=== PATIENT | female | born 1950 | race Caucasian/White ===

== ENCOUNTER 2025-01-26 14:00 | Inpatient (IN) ==
--- NOTE | 2025-01-26 15:28 | Emergency Department Note ---
Impression & Plan Wound of gluteal cleft, Dyspnea, CHF (congestive heart failure), Ambulatory dysfunction ED Provider Note HISTORY OF PRESENT ILLNESS: Patient is a 74-year-old female presenting with bedsores. Patient reports that her daughter and dog licenser had thought that her "sores on my butt looked gangrenous and were concerned for sepsis" and that is why she is in the emergency department. Patient denies any significant pain to this area. She reports she is wheelchair and bedbound. She does not ambulate at all. She states that she was septic previously in October and had some shortness of breath, and she started having some shortness of breath this last week. However, patient has no complaints of shortness of breath in ER. Denies any fevers or chills at home. Denies any abdominal pain, nausea or vomiting. She states that she is frequently incontinent and wears a briefs regularly. ROS: as above PHYSICAL EXAM: Constitutional: Patient appears in no acute distress. Morbidly obese HENT: Head: Normocephalic and atraumatic. Eyes: EOMI, PERRL Mouth/Throat: Mucous membranes moist. Neck: Trachea midline. Neck supple. Cardiovascular: RRR, No murmurs, rubs or gallops. Intact distal pulses. Pulmonary/Chest: No respiratory distress. Breath sounds clear and equal bilaterally. No wheezes or rales. Abdominal: Abdomen soft, no tenderness, rebound or guarding. Musculoskeletal: No tenderness or deformity noted. Nonpitting edema of the lower extremities. Rectal: Chaperoned by nursing staff. Patient has skin excoriations with overlying scabbing to the bilateral gluteal cleft region. No drainage expressed from the area no palpable fluctuance. No open sores. Skin: Warm and dry. No rash, erythema, pallor or cyanosis Psychiatric: Appropriate mood and affect for situation. Neurological: Alert and keenly responsive. CN II-XII grossly intact MDM: - Vitals signs showed hypertension - History obtained via patient. History as above. - Chronic conditions affecting care: Lymphedema; morbid obesity - Differential diagnoses include, but are not limited to: sacral ulcer; gluteal irritation; UTI; - Order placed for continuous cardiac monitoring. At this time, monitor showed rate of 76 bpm with normal sinus rhythm, per my interpretation. - External medical records reviewed. Discharge summary dated 11/05/2024 was reviewed. Patient was admitted that time due to ambulatory dysfunction and was placed in a SNF previously. - Laboratory workup interpreted by myself showed normal WBC; stable electrolytes; normal PT/INR; negative procalcitonin - Discussed results with the patient. Attempted to work on getting her discharge, and her daughter called and was very upset. She reports the patient has been very short of breath. However, the patient does not express any significant shortness of breath on repeat questioning. Daughter and patient are also asking about her having a Menjivar catheter placed. However, I did discuss that this would be something that puts her at high risk for infections. Recommended use of barrier creams and she was given some barrier cream in the emergency department to utilize at home. Troponin and chest x-ray were ordered for the reported shortness of breath that the patient is not complaining of at the behest of the daughter. - CXR image showed some congestive changes per radiology. - On discussion with patient, she reports that she does not feel comfortable going home and her family does not feel comfortable taking her home given that they are unable to care for her. Will discuss case with hospitalist service. - Discussion was had with window caser about patient's case and need for admission. Patient has previously been admitted for inpatient rehab/SNF placement. - Hospitalist consulted for admission - Patient admitted to [facility] hospitalist service for further evaluation and management. ASSESSMENT AND PLAN: Diagnosis: Wound of gluteal cleft; dyspnea; CHF; ambulatory dysfunction Plan: Admit Past Med/Surg History Problem List (Updated 01/26/25 @ 17:56 by Nathalia Anne MD) Ambulatory dysfunction (Acute) CHF (congestive heart failure) (Acute) Dyspnea (Acute) Wound of gluteal cleft (Acute) Morbid obesity with BMI of 50.0-59.9, adult Lymphedema Wound of skin Ambulatory dysfunction Medical History Anemia Stable angina Hypertension Surgical History History of total hip arthroplasty Family History Other Diabetes mellitus, type 2 Social History Smoking Status: Never smoker Second Hand Exposure: No; Do You Dip or Chew Tobacco: No; Hx Alcohol Use: No Hx Substance Use: No Preferred Language: Slovenian Communication Ability: Effective Portal Administrator Required: No Beliefs That Will Affect Care: None Current Living Situation: Spouse Feels Safe at Home: Yes Assistive Devices: Mechanical Lift, Walker and Wheelchair Allergies Allergies Allergy/AdvReac Type Severity Reaction Status Date / Time cat dander Allergy Congested Verified 09/24/24 11:03 Home Meds Home Medications Medication Instructions Recorded Confirmed Vitamin D3 25 mcg PO DAILY 09/24/24 11/03/24 ascorbic acid (vitamin C) 500 mg 500 mg PO DAILY 09/24/24 11/03/24 capsule atorvastatin 10 mg tablet 10 mg PO HS 09/24/24 11/03/24 carvedilol 3.125 mg tablet 3.125 mg PO BID 09/24/24 11/03/24 ferrous sulfate 325 mg PO DAILY 09/24/24 11/03/24 fluticasone furoate 50 See Rx Instructions .Route .COMPLEX 09/24/24 11/03/24 mcg/actuation blister powder for inhalation furosemide 40 mg tablet 40 mg PO DAILY 09/24/24 11/03/24 gabapentin 300 cap PO HS 09/24/24 09/24/24 mirabegron 25 mg tablet,extended 25 mg PO DAILY 09/24/24 11/03/24 release 24 hr ondansetron HCl 4 mg tablet 4 mg PO Q6H PRN Nausea And Vomiting 09/24/24 09/24/24 pantoprazole 40 mg tablet,delayed 40 mg PO DAILY 09/24/24 11/03/24 release sennosides 8.6 mg tablet (senna) 17.2 mg PO BID 09/24/24 09/24/24 zinc sulfate 220 mg capsule 220 mg PO DAILY 09/24/24 11/03/24 amoxicillin 875 mg-potassium 1 tab PO BID 11/03/24 11/03/24 clavulanate 125 mg tablet ranolazine 1,000 mg 1,000 mg PO BID 11/03/24 11/03/24 tablet,extended release,12 hr ranolazine 1,000 mg mg PO 11/03/24 tablet,extended release,12 hr Results & Data (ED) Vital Signs Vital Signs - 24 hr 01/26/25 14:13 01/26/25 15:12 01/26/25 16:30 Temperature 36.4 C L Temperature Source Oral Pulse Rate 73 75 Pulse Rate from SpO2 Sensor 76 Respiratory Rate 19 27 H Respiratory Effort / Characteristics Non-Labored Spontaneous Respiratory Depth Normal Blood Pressure 171/63 H Blood Pressure Mean 99 Blood Pressure Position Semi-fowlers Pulse Oximetry 98 97 99 Oxygen Delivery Method Room Air Room Air Room Air Sepsis Recent Fever Within 48 Hours No Sepsis New/Unexplained Change in Mental Status N/A Sepsis Action Taken by Nursing No Action Required 01/26/25 17:00 01/26/25 17:33 01/26/25 17:40 Temperature Temperature Source Pulse Rate 76 76 76 Pulse Rate from SpO2 Sensor 76 76 Respiratory Rate 18 23 Respiratory Effort / Characteristics Respiratory Depth Blood Pressure Blood Pressure Mean Blood Pressure Position Pulse Oximetry 99 96 Oxygen Delivery Method Room Air Room Air Sepsis Recent Fever Within 48 Hours Sepsis New/Unexplained Change in Mental Status Sepsis Action Taken by Nursing Laboratory Data 01/26/25 15:30 01/26/25 15:30 Lab Results 01/26/25 Range/Units 15:30 WBC 7.81 (4.8-10.8) K/ul RBC 4.62 (4.20-5.40) M/uL Hgb 12.9 (12.0-16.0) g/dl Hct 41.1 (37.0-47.0) % MCV 89.0 (80.0-100.0) fL MCH 27.9 (25.0-34.0) pg MCHC 31.4 L (32.0-36.0) g/dL RDW Std Deviation 45.1 (36.4-46.3) fL RDW Coeff of Jamaal 13.9 (11.5-14.5) % Plt Count 238 (130-400) K/uL MPV 9.1 L (9.4-12.4) fL Immature Gran % (Auto) 0.5 % Neut % (Auto) 66.6 % Lymph % (Auto) 22.4 % Steele % (Auto) 8.2 % Eos % (Auto) 1.9 % Baso % (Auto) 0.4 % Neut # (Auto) 5.20 (1.40-6.50) K/uL Lymph # (Auto) 1.75 (1.20-3.40) K/uL Steele # (Auto) 0.64 H (0.11-0.59) K/uL Eos # (Auto) 0.15 (0.00-0.50) K/uL Baso # (Auto) 0.03 (0.00-0.20) K/uL Immature Gran # (Auto) 0.04 (0.01-0.20) K/uL PT 10.9 (9.0-12.0) Seconds INR 1.0 (0.9-1.1) Sodium 141 (136-145) mmol/L Potassium 4.0 (3.5-5.1) mmol/L Chloride 106 (98-107) mmol/L Carbon Dioxide 28 (21-32) mmol/L Anion Gap 7 (3-11) BUN 23 (6-23) mg/dl Creatinine 0.63 (0.6-1.2) mg/dl Est Cr Clr Drug Dosing Not Reportable eGFR 94.19 BUN/Creatinine Ratio 36.5 H (10-20) Glucose 91 (70-99(Fasting)) mg/dl Calcium 9.3 (8.6-10.3) mg/dl Total Bilirubin 0.5 (0.2-1.0) mg/dl AST 14 (13-39) U/L ALT 13 (7-52) U/L Alkaline Phosphatase 104 (34-104) U/L Total Protein 7.8 (6.0-8.3) gm/dl Albumin 3.5 (3.4-5.0) gm/dl Globulin 4.3 H (2.5-4.0) gm/dl Albumin/Globulin Ratio 0.8 L (0.9-2) Procalcitonin < 0.02 (0-0.5) ng/ml Imaging Data Radiologist's Impression: Chest X-Ray 01/26/25 16:55 EXAM: Portable AP chest radiograph TECHNIQUE: AP portable radiograph of the chest was obtained. INDICATION: Shortness of breath Comparison: Chest radiograph November 03, 2024 FINDINGS: LINES and TUBES: None. CARDIOVASCULAR: Cardiac silhouette is stably enlarged in size. Atherosclerosis of the thoracic aorta LUNGS/PLEURA: Mild pulmonary vascular congestion has increased from previous. Chronic interstitial lung changes. No focal consolidation identified. Small pleural fluids may be present. No discernible pneumothorax. OSSEOUS/OTHER: No displaced acute osseous process identified. IMPRESSION: Mild interval worsening of the congestive changes of the cardiovascular system. Electronically signed by Trenton Keys 01-26-2025 5:28 PM Discharge Plan Visit Data Chief Complaint: Wound Stated Complaint: BED SORES ED Provider: Nathalia Anne Discharge Problem: Wound of gluteal cleft, Dyspnea, CHF (congestive heart failure), Ambulatory dysfunction Condition: Fair Forms Stand Alone Forms: My [facility] [place] Prescriptions Prescriptions: No Action furosemide 40 mg Tablet 40 mg PO DAILY sennosides [senna] 8.6 mg Tablet 17.2 mg PO BID atorvastatin 10 mg Tablet 10 mg PO HS ondansetron HCl 4 mg Tablet 4 mg PO Q6H PRN (Reason: Nausea And Vomiting) carvedilol 3.125 mg Tablet 3.125 mg PO BID Rx Instructions: must administer with a meal/food pantoprazole 40 mg Tablet,Delayed Release (Dr/Ec) 40 mg PO DAILY zinc sulfate 220 mg Capsule 220 mg PO DAILY mirabegron 25 mg Tablet Extended Release 24 Hr 25 mg PO DAILY ascorbic acid (vitamin C) 500 mg Capsule 500 mg PO DAILY fluticasone furoate 50 mcg/actuation Blister With Device See Rx Instructions .ROUTE .COMPLEX Rx Instructions: as directed Vitamin D3 25 mcg PO DAILY ferrous sulfate 325 mg PO DAILY gabapentin 300 cap PO HS amoxicillin-pot clavulanate 875-125 mg tablet 1 tab PO BID ranolazine 1,000 mg tablet extended release 12 hr 1,000 mg PO BID ranolazine 1,000 mg tablet extended release 12 hr PO Referrals Referrals: Marya Puente PA-C [Primary Care Provider] -
[2025-01-26 16:04] LABS: Hematocrit (blood only) 41.1 % (37.0-47.0); Hemoglobin 12.9 g/dl (12.0-16.0); Mean Corpuscular Hemoglobin 27.9 pg (25.0-34.0); Mean Corpuscular Volume 89.0 fL (80.0-100.0); Platelet Count 238 K/uL (130-400); RDW Standard Deviation 45.1 fL (36.4-46.3); Red Blood Count 4.62 M/uL (4.20-5.40); White Blood Count 7.81 K/ul (4.8-10.8)
[2025-01-26 16:06] LABS: Alanine Aminotransferase 13 U/L (7-52); Albumin Globulin Ratio 0.8 (0.9-2); Alkaline Phosphatase 104 U/L (34-104); Anion Gap 7 (3-11); Bilirubin,Total 0.5 mg/dl (0.2-1.0); Blood Urea Nitrogen 23 mg/dl (6-23); Calcium 9.3 mg/dl (8.6-10.3); Carbon Dioxide 28 mmol/L (21-32); Chloride 106 mmol/L (98-107); Globulin 4.3 gm/dl (2.5-4.0); Glucose 91 mg/dl (70-99(Fasting)); Potassium 4.0 mmol/L (3.5-5.1); Sodium 141 mmol/L (136-145); Total Protein 7.8 gm/dl (6.0-8.3)
[2025-01-26 16:08] LABS: Immature Granulocytes # (auto) 0.04 K/uL (0.01-0.20); Immature Granulocytes % (auto) 0.5 %
[2025-01-26 16:19] LABS: INR 1.0 (0.9-1.1); Prothrombin Time 10.9 Seconds (9.0-12.0)
--- NOTE | 2025-01-26 17:28 | XRay Report ---
EXAM: Portable AP chest radiograph TECHNIQUE: AP portable radiograph of the chest was obtained. INDICATION: Shortness of breath Comparison: Chest radiograph November 03, 2024 FINDINGS: LINES and TUBES: None. CARDIOVASCULAR: Cardiac silhouette is stably enlarged in size. Atherosclerosis of the thoracic aorta LUNGS/PLEURA: Mild pulmonary vascular congestion has increased from previous. Chronic interstitial lung changes. No focal consolidation identified. Small pleural fluids may be present. No discernible pneumothorax. OSSEOUS/OTHER: No displaced acute osseous process identified. IMPRESSION: Mild interval worsening of the congestive changes of the cardiovascular system. Electronically signed by Trenton Keys 01-26-2025 5:28 PM
--- NOTE | 2025-01-26 18:30 | History & Physical Report ---
Date of Service January 26, 2025 Assessment & Plan (1) Hypertension: Plan: Poorly controlled hypertension. According to the patient, she was recently started on hydrochlorothiazide and losartan. However in the emergency department, blood pressure was 170 systolic, but he got worse to 200 systolic. Will start her on hydrochlorothiazide and losartan Recheck blood pressure (2) Lymphedema: Plan: Chronic lymphedema She uses compression stockings at home, will continue (3) Morbid obesity with BMI of 50.0-59.9, adult: Plan: Patient was advised on lifestyle changes (4) Ambulatory dysfunction: Plan: She had the left hip replacement August 2023 and the revision in 2024 Continues to have some difficulty ambulating According to her she is mostly bedbound but uses a walker to walk on the wheelchair Will consult physical therapy Patient may need rehab (5) CHF (congestive heart failure): Plan: Not in exacerbation She takes Lasix at home 40 mg will continue Monitor input and output, daily weights (6) Wound of gluteal cleft: Plan: No evidence of ulcer or deep wound Will get wound care She needs proper nursing care with turning every 2-4 hours Plan Admit to [facility] Consult case management regarding need for placement Full code History of Present Illness Chief Complaint: weakness, sob Primary Care Provider: Marya Puente This is a 72-year-old female with a history of morbid obesity, hypertension, lymphedema, left hip replacement who presents to the hospital today with worsening shortness of breath and the family is concerned that she is not doing so well at home. The patient had left hip replacement in April 2024, and had a revision August 2024 and has been having ambulatory difficulties since then. She says she is mostly bedbound but uses a wheelchair for mobility. She has also been to the rehab a few times. She presents to the hospital says she had a little bit of shortness of breath but the family is concerned that she is not doing well at home and may need placement. Here in the emergency department initial blood pressure was 170 systolic however it got worse to 200 systolic, she will be admitted to the hospital for further investigation of further management. Allergies Allergy/AdvReac Type Severity Reaction Status Date / Time cat dander Allergy Congested Verified 01/26/25 18:28 Home Medications Medication Instructions Recorded Confirmed Type Vitamin D3 25 mcg PO DAILY 09/24/24 11/03/24 History ascorbic acid (vitamin C) 500 mg 500 mg PO DAILY 09/24/24 11/03/24 History capsule atorvastatin 10 mg tablet 10 mg PO HS 09/24/24 11/03/24 History carvedilol 3.125 mg tablet 3.125 mg PO BID 09/24/24 11/03/24 History ferrous sulfate 325 mg PO DAILY 09/24/24 11/03/24 History fluticasone furoate 50 See Rx Instructions .Route .COMPLEX 09/24/24 11/03/24 Hi story mcg/actuation blister powder for inhalation furosemide 40 mg tablet 40 mg PO DAILY 09/24/24 11/03/24 History gabapentin 300 cap PO HS 09/24/24 09/24/24 History mirabegron 25 mg tablet,extended 25 mg PO DAILY 09/24/24 11/03/24 History release 24 hr ondansetron HCl 4 mg tablet 4 mg PO Q6H PRN Nausea And Vomiting 09/24/24 09/24/24 History pantoprazole 40 mg tablet,delayed 40 mg PO DAILY 09/24/24 11/03/24 History release sennosides 8.6 mg tablet (senna) 17.2 mg PO BID 09/24/24 09/24/24 History zinc sulfate 220 mg capsule 220 mg PO DAILY 09/24/24 11/03/24 History amoxicillin 875 mg-potassium 1 tab PO BID 11/03/24 11/03/24 History clavulanate 125 mg tablet ranolazine 1,000 mg 1,000 mg PO BID 11/03/24 11/03/24 History tablet,extended release,12 hr ranolazine 1,000 mg mg PO 11/03/24 History tablet,extended release,12 hr Past Med/Surg History Problem List (Updated 01/26/25 @ 17:56 by Nathalia Anne MD) Ambulatory dysfunction (Acute) CHF (congestive heart failure) (Acute) Dyspnea (Acute) Wound of gluteal cleft (Acute) Morbid obesity with BMI of 50.0-59.9, adult Lymphedema Wound of skin Ambulatory dysfunction Medical History Anemia Stable angina Hypertension Surgical History History of total hip arthroplasty Family History Other Diabetes mellitus, type 2 Social History Smoking Status: Never smoker Second Hand Exposure: No; Do You Dip or Chew Tobacco: No; Hx Alcohol Use: No Hx Substance Use: No Preferred Language: Upper Sorbian Communication Ability: Effective Avionics Systems Integration Specialist Required: No Beliefs That Will Affect Care: None Current Living Situation: Spouse Feels Safe at Home: Yes Assistive Devices: Mechanical Lift, Walker and Wheelchair Review of Systems Review of Systems: All systems reviewed are negative, apart from the ones contained in the history. Physical Exam Physical Exam: The patient is awake, alert and oriented 3, well developed and well nourished, normocephalic and atraumatic, lying in bed and in no acute distress. HEENT--PERRL, EOMI, mucous membranes and oropharynx mildly dry Neck--supple. No JVD. No bruits. Thyroid normal, trachea midline, no adenopathy. Heart--normal S1 and S2. No murmurs, rubs or gallops. Lungs--clear bilaterally, no respiratory distress, no accessory muscle use. Abdomen--normal bowel sounds and soft. Extremities--Lymphedema Dermatologic--normal skin turgor, normal color, no abnormal lymph nodes, no rash. Neurologic--cranial nerves II through XII grossly intact. Rheumatologic--normal range of motion. Psychiatric--normal affect. Results & Data Results & Data Vital Signs (Past 12 Hours) Vital Signs Temp Pulse Resp BP Pulse Ox O2 Del Method 01/26/25 17:40 76 01/26/25 17:33 76 23 96 Room Air 01/26/25 17:00 76 18 99 Room Air 01/26/25 16:30 75 27 H 99 Room Air 01/26/25 15:12 97 Room Air 01/26/25 14:13 97.5 F L 73 19 171/63 H 98 Room Air PG Care Time/CCT Total # of Minutes Spent Total Time Spent with Patient: Total time spent is greater than 50% in coordination of care (as documented) at patient's floor/unit and/or counseling patient: Coding Level of Care Code 41792 INT INP/OBS CARE 3/75MIN Diagnoses Hypertension I10 Lymphedema I89.0 Morbid obesity with BMI of 50.0-59.9, adult E66.01; Z68.43 Ambulatory dysfunction R26.2 CHF (congestive heart failure) I50.9 Wound of gluteal cleft S31.809A Time Spent (min) 75
[2025-01-26] MEDS ORDERED: ACETAMINOPHEN 325 MG TAB PO PRN (21:12)
[2025-01-26] MEDS: LOSARTAN/HCTZ 50/12.5MG TAB PO SCH (22:35)
[2025-01-26] MEDS: GABAPENTIN 300 MG CAP PO SCH (22:36)
[2025-01-26] MEDS: HEPARIN SOD 5,000 UNIT/0.5 ML VIAL SQ SCH (22:36)
[2025-01-26] MEDS: ATORVASTATIN 10 MG TAB PO SCH (22:36)
[2025-01-27 02:48] LABS: Appearance Urine Cloudy (Clear); Bacteria Urine Automated 4+ (None Seen); Cast Urine Automated 0-2 /lpf (0-2); Epithelial Cell Urine Auto 0-2 /hpf (0-2); Glucose Urine UA Negative (Negative); RBC Urine Automated 0-2 /hpf (0-2); WBC Urine Automated >50 /hpf (0-5)
[2025-01-27] MEDS: VIBEGRON 75 MG TAB PO SCH (09:21)
[2025-01-27] MEDS: cefTRIAXone SODIUM 2,000 MG/50 ML BAG IV SCH (09:21)
[2025-01-27] MEDS: ASCORBIC ACID 500 MG TAB PO SCH (09:21)
[2025-01-27] MEDS: FERROUS SULFATE 325 MG TAB PO SCH (09:21)
[2025-01-27] MEDS: FUROSEMIDE 40 MG TAB PO SCH (09:21)
--- NOTE | 2025-01-27 12:56 | Hospitalist Progress Note ---
Date of Service January 27, 2025 Assessment & Plan (1) Hypertension: Plan: Poorly controlled hypertension. According to the patient, she was recently started on hydrochlorothiazide and losartan. However in the emergency department, blood pressure was 170 systolic, but he got worse to 200 systolic. Will start her on hydrochlorothiazide and losartan Continue to monitor blood pressure (2) Lymphedema: Plan: Chronic lymphedema She uses compression stockings at home, will continue (3) Morbid obesity with BMI of 50.0-59.9, adult: Plan: Patient was advised on lifestyle changes (4) Ambulatory dysfunction: Plan: Functional paraplegia She had the left hip replacement August 2023 and the revision in 2024 Continues to have some difficulty ambulating According to her she is mostly bedbound but uses a walker to walk on the wheelchair Will consult physical therapy Patient may need rehab (5) CHF (congestive heart failure): Plan: Not in exacerbation She takes Lasix at home 40 mg will continue Monitor input and output, daily weights (6) Wound of gluteal cleft: Plan: No evidence of ulcer or deep wound Will get wound care She needs proper nursing care with turning every 2-4 hours (7) UTI (urinary tract infection): Plan: Urinalysis suggestive of UTI Will follow up cultures Continue Empiric ceftriaxone Plan Admit to [facility] Consult case management regarding need for placement Full code Admission and Anticipated Discharge Date Admission Date: January 26, 2025 Subjective patient seen and examined, evaluated by PT/OT, tolerating diet Review of Systems Review of Systems: All systems reviewed are negative, apart from the ones contained in the history. Physical Exam Physical Exam: The patient is awake, alert and oriented 3, well developed and well nourished, normocephalic and atraumatic, lying in bed and in no acute distress. HEENT--PERRL, EOMI, mucous membranes and oropharynx mildly dry Neck--supple. No JVD. No bruits. Thyroid normal, trachea midline, no adenopathy. Heart--normal S1 and S2. No murmurs, rubs or gallops. Lungs--clear bilaterally, no respiratory distress, no accessory muscle use. Abdomen--normal bowel sounds and soft. Extremities--Lymphedema Dermatologic--normal skin turgor, normal color, no abnormal lymph nodes, no rash. Neurologic--cranial nerves II through XII grossly intact. Rheumatologic--normal range of motion. Psychiatric--normal affect. Results & Data Results & Data Vital Signs (Past 12 Hours) Vital Signs Temp Pulse Resp BP Pulse Ox O2 Del Method 01/27/25 07:46 97.7 F 70 18 178/77 H 99 Room Air PG Care Time/CCT Total # of Minutes Spent Total Time Spent with Patient: Total time spent is greater than 50% in coordination of care (as documented) at patient's floor/unit and/or counseling patient: Coding Level of Care Code 24294 SUB INP/OBS CARE 2/35MIN Diagnoses Hypertension I10 Lymphedema I89.0 Morbid obesity with BMI of 50.0-59.9, adult E66.01; Z68.43 Ambulatory dysfunction R26.2 CHF (congestive heart failure) I50.9 Wound of gluteal cleft S31.809A UTI (urinary tract infection) N39.0 Time Spent (min) 35
[2025-01-27] MEDS: RANOLAZINE 500 MG ER TAB PO SCH (20:51)
--- NOTE | 2025-01-28 11:25 | Hospitalist Progress Note ---
Date of Service January 28, 2025 Assessment & Plan (1) Hypertension: Plan: BP is now under better control Continue her on hydrochlorothiazide and losartan and home carvedilol Continue to monitor blood pressure (2) Lymphedema: Plan: Chronic lymphedema She uses compression stockings at home, will continue (3) Morbid obesity with BMI of 50.0-59.9, adult: Plan: Patient was advised on lifestyle changes (4) Ambulatory dysfunction: Plan: Functional paraplegia She had the left hip replacement August 2023 and the revision in 2024 Continues to have some difficulty ambulating According to her she is mostly bedbound but uses a walker to walk on the wheelch air Will consult physical therapy Patient may need rehab (5) CHF (congestive heart failure): Plan: Not in exacerbation She takes Lasix at home 40 mg will continue Monitor input and output, daily weights (6) Wound of gluteal cleft: Plan: No evidence of ulcer or deep wound wound care appreciated She needs proper nursing care with turning every 2-4 hours (7) UTI (urinary tract infection): Plan: Urinalysis suggestive of UTI Will follow up cultures, negative so far Continue Empiric ceftriaxone Plan PT determines patient can be discharged with home PT, hopefully tomorrow Consult case management regarding need for placement Full code Admission and Anticipated Discharge Date Admission Date: January 26, 2025 Subjective patient seen and examined, evaluated by PT/OT, tolerating diet Review of Systems Review of Systems: All systems reviewed are negative, apart from the ones contained in the history. Physical Exam Physical Exam: The patient is awake, alert and oriented 3, well developed and well nourished, normocephalic and atraumatic, lying in bed and in no acute distress. HEENT--PERRL, EOMI, mucous membranes and oropharynx mildly dry Neck--supple. No JVD. No bruits. Thyroid normal, trachea midline, no adenopathy. Heart--normal S1 and S2. No murmurs, rubs or gallops. Lungs--clear bilaterally, no respiratory distress, no accessory muscle use. Abdomen--normal bowel sounds and soft. Extremities--Lymphedema Dermatologic--normal skin turgor, normal color, no abnormal lymph nodes, no rash. Neurologic--cranial nerves II through XII grossly intact. Rheumatologic--normal range of motion. Psychiatric--normal affect. Results & Data Results & Data Vital Signs (Past 12 Hours) Vital Signs Temp Pulse Resp BP Pulse Ox O2 Del Method 01/28/25 09:19 Room Air 01/28/25 07:38 98.4 F 74 18 132/78 98 Room Air 01/28/25 00:39 98.8 F 91 H 20 98/54 L 94 Room Air PG Care Time/CCT Total # of Minutes Spent Total Time Spent with Patient: Total time spent is greater than 50% in coordination of care (as documented) at patient's floor/unit and/or counseling patient: Coding Level of Care Code 28493 SUB INP/OBS CARE 2/35MIN Diagnoses Hypertension I10 Lymphedema I89.0 Morbid obesity with BMI of 50.0-59.9, adult E66.01; Z68.43 Ambulatory dysfunction R26.2 CHF (congestive heart failure) I50.9 Wound of gluteal cleft S31.809A UTI (urinary tract infection) N39.0 Time Spent (min) 35
[2025-01-29 07:37] VITALS: RESP 18; TEMP 97.9; O2SAT 98
[2025-01-29] MEDS: NITROFURANTOIN MONOHYDRATE 100 MG CAP PO SCH (08:35)
[2025-01-29] MEDS ORDERED: levoFLOXacin 500 MG TAB PO SCH (11:00)
--- NOTE | 2025-01-29 13:12 | Discharge Summary ---
Date of Service January 29, 2025 Admission HPI Per Admitting Provider This is a 72-year-old female with a history of morbid obesity, hypertension, lymphedema, left hip replacement who presents to the hospital today with worsening shortness of breath and the family is concerned that she is not doing so well at home. The patient had left hip replacement in April 2024, and had a revision August 2024 and has been having ambulatory difficulties since then. She says she is mostly bedbound but uses a wheelchair for mobility. She has also been to the rehab a few times. She presents to the hospital says she had a little bit of shortness of breath but the family is concerned that she is not doing well at home and may need placement. Here in the emergency department initial blood pressure was 170 systolic however it got worse to 200 systolic, she will be admitted to the hospital for further investigation of further management. Admission Exam (Per Admitting) Constitutional The patient is awake, alert and oriented 3, well developed and well nourished, normocephalic and atraumatic, lying in bed and in no acute distress. HEENT--PERRL, EOMI, mucous membranes and oropharynx mildly dry Neck--supple. No JVD. No bruits. Thyroid normal, trachea midline, no adenopathy. Heart--normal S1 and S2. No murmurs, rubs or gallops. Lungs--clear bilaterally, no respiratory distress, no accessory muscle use. Abdomen--normal bowel sounds and soft. Extremities--no cyanosis or clubbing. No edema. poor muscle tone Dermatologic--normal skin turgor, normal color, no abnormal lymph nodes, no rash. Neurologic--cranial nerves II through XII grossly intact. Rheumatologic--normal range of motion. Psychiatric--normal affect. Hospital Course (1) Hypertension: BP is now under better control Continue her on hydrochlorothiazide and losartan and home carvedilol Continue to monitor blood pressure (2) UTI (urinary tract infection): Urinalysis suggestive of UTI Urine cultures growing ESBL Will discharge on Macrobid for 5 more days (3) Lymphedema: Chronic lymphedema She uses compression stockings at home, will continue (4) Morbid obesity with BMI of 50.0-59.9, adult: Patient was advised on lifestyle changes (5) Ambulatory dysfunction: Functional paraplegia She had the left hip replacement August 2023 and the revision in 2024 Continues to have some difficulty ambulating According to her she is mostly bedbound but uses a walker to walk on the wheelchair Will consult physical therapy discharge home with Home health and PT (6) CHF (congestive heart failure): Not in exacerbation She takes Lasix at home 40 mg will continue Monitor input and output, daily weights (7) Wound of gluteal cleft: No evidence of ulcer or deep wound wound care appreciated She needs proper nursing care with turning every 2-4 hours Plan PT determines patient can be discharged with home PT, hopefully tomorrow Consult case management regarding need for placement Full code Coding Level of Care Code 69458 INP/OBS DISCH >30 MIN Diagnoses Hypertension I10 UTI (urinary tract infection) N39.0 Lymphedema I89.0 Morbid obesity with BMI of 50.0-59.9, adult E66.01; Z68.43 Ambulatory dysfunction R26.2 CHF (congestive heart failure) I50.9 Wound of gluteal cleft S31.809A Time Spent (min) 35
[2025-01-29 15:11] VITALS: BP 178/82; PULSE 82
== END 2025-01-29 16:28 | disposition home or self-care (01) | DRG 292 ==
LOC: ED 14:00 → EDINP 18:11 → 2N 21:12